=== PATIENT | male | born 1995 | race Caucasian/White ===

== ENCOUNTER 2019-02-21 16:20 | Observation (INO) ==
[2019-02-21] MEDS ORDERED: Naloxone 0.4 MG/ML INJ IVP PRN (20:57)
--- NOTE | 2019-02-21 22:39 | Internal Med History&Physical ---
Date of Encounter: 02/21/19 Time of Encounter: 21:30 Internal Medicine - H&P: HPI Chief complaint: Chest Pain Admitted From: Hospital to Hospital Transfer History of present illness: Mr. Jauregui is a 23 year old male with past medical history significant for hypertension, anxiety, depression, and obesity who presents from [facility] for complaints of chest pain intermittently over past three weeks. Pain is described as "piercing" across chest but does not radiate. Pain is rated at 5/10 at its worst and lasts no longer than 30 minutes and resolves spontaneously. Denies any alleviating or exacerbating factors. Denies any associated symptoms. No known injury or anything he can associate with when he started experiencing the pain. Sought examination today due to length of time pain has persisted though he denies progressive worsening of his symptoms. Sending ER reported EKG as sinus rhythm with Q waves and t wave inversions in leads I, II, and aVL, no previous EKG available for comparison. Due to EKG changes sending ER discussed with extrusion die corrector cardiology Dr Cohen who recommended transfer to [facility] for consult and echocardiogram. Sending ER also obtained chest xray which showed no acute abnormality. Received full dose aspirin at sending ER. Currently denies any headache, numbness, chest pain, shortness of breath, abdominal pain, bowel or bladder changes. Denies any previous echocardiogram or stress testing. Has family history of CAD and atrial fibrillation. Follows regularly with PCP but no other providers. Reports occasional alcohol use but denies any tobacco or drug use. Past Med Surg Social Fam HX - Past Medical History Medical history: hypertension, other Additional medical history: obesity Psychiatric history: anxiety, depression - Past Surgical History Surgical History: no surgical history - Social History Smoking Status: Never smoker Smokeless Tobacco Status: No Alcohol use: none Drug use: none Internal Medicine - H&P: Meds Lisinopril-HCTZ 10-12.5 [Prinzide 10-12.5] 1 each PO DAILY 02/21/19 [History] Sertraline [Zoloft] 50 mg PO DAILY 02/21/19 [History] Allergy/AdvReac Type Severity Reaction Status Date / Time No Known Allergies Allergy Verified 02/21/19 13:49 All Systems PM: A 10-system review of systems was performed and is negative for pertinent findings except as documented above in the HPI. - Constitutional Vitals: Temp Pulse Resp BP Pulse Ox 97.9 F 97 16 135/77 95 02/21/19 20:31 02/21/19 20:31 02/21/19 20:31 02/21/19 20:31 02/21/19 20:31 Exam: General: Alert and oriented. Obese. Skin:Normal color, no rash, no lesions. HEENT:Pupils equal, round and reactive. Cardiovascular:Normal S1 & S2, no rubs, murmurs or gallops. No JVD. Pulse regular. Lungs:Normal breath sounds, no wheezes or crackles. Abdomen:Soft, non-tender, no rigidity. Extremities:No deformity, no edema or tenderness, no joint swelling or clubbing. Neurological:Normal cognition and motor skills. Pulses:Carotid and radial pulses normal +2. Rest of the physical exam is non contributory. Internal Med - H&P Results - Labs Labs: Cardiac Enzymes 02/21/19 Range/Units 21:12 Troponin I < 0.03 (< 0.04) ng/mL - Assessment and Plan (1) Chest pain Current Visit: No Status: Acute Assessment and plan: Currently chest pain free. Initial troponin negative, serial troponins ordered Continuous cardiac monitoring. Echocardiogram ordered. Sending ER consulted cardiology, consult order placed. Qualifiers: Chest pain type: unspecified Qualified Code(s): R07.9 - Chest pain, unspec ified (2) Hypertension Current Visit: Yes Status: Chronic Assessment and plan: Currently controlled. Continue home medications once verified. Qualifiers: Hypertension type: unspecified Qualified Code(s): I10 - Essential (primary) hypertension (3) Anxiety and depression Current Visit: Yes Status: Chronic Assessment and plan: Continue home medications once verified. - Time Spent With Patient Total time spent is greater than 50% in coordination of care (as documented) at patient's floor/unit and/or counseling patient:
[2019-02-22 03:53] LABS: Basophils % 0.2 %; Eosinophils # 0.1 K/mcL (0.0-0.6); Eosinophils % 1.1 %; Hematocrit 42.5 % (37.5-50.1); Hemoglobin 14.7 g/dL (12.9-16.9); Immature Granulocytes % 0.3 % (0-4); Lymphocytes # 3.5 K/mcL (0.6-4.6); Lymphocytes % 37.1 %; Mean Corpuscular HGB Conc 34.6 g/dL (31.6-35.5); Mean Corpuscular Hemoglobin 27.8 pg (28.0-33.3); Mean Corpuscular Volume 80.3 fL (83.0-100.0); Mean Platelet Volume 10.4 fL (9.4-12.4); Monocytes # 0.5 K/mcL (0.0-1.3); Monocytes % 4.8 %; Neutrophils # 5.3 K/mcL (1.6-8.9); Platelet Count 248 K/mcL (140-400); Red Blood Count 5.29 M/mcL (4.19-5.50); Red Cell Distribution Width 12.8 % (11.5-14.5); Segmented Neutrophils % 56.5 %
[2019-02-22 04:11] LABS: BUN/Creatinine Ratio 14 (6-26); Blood Urea Nitrogen 12 mg/dL (6-20); Calcium 9.2 mg/dL (8.6-10.3); Carbon Dioxide 27 mEq/L (23-29); Chloride 104 mEq/L (98-107); Glucose 90 mg/dL (70-105); Osmolality,Calculated 289 (280-300); Potassium 3.9 mEq/L (3.5-5.1); Sodium 140 mEq/L (136-145); eGFR For Non-African Americans > 60 (> 60)
[2019-02-22] MEDS: *HR* Heparin 5,000 UNIT/ML VIAL SQ SCH ×2 (05:18→17:51)
--- NOTE | 2019-02-22 09:17 | Cardiology Consult Note ---
Date of Encounter: 02/22/19 Time of Encounter: 09:16 Assessment and Plan (1) Chest pain Current Visit: No Status: Acute Atypical type chest pain with nonspecific ST changes and negative cardiac markers, aggressive risk stratification with fasting lipid panel, hemoglobin A1c possible sleep apnea evaluation due to obesity. Echo has been ordered by the eleazar dominguez team and is pending, obtained ETT to rule out ischemia Qualifiers: Chest pain type: unspecified Qualified Code(s): R07.9 - Chest pain, un specified Discussion w patient/family: The assessment and plan as outlined above was discussed with the patient and/or family members who expressed understanding and agreement. All questions were answered. Thank you for involving us in the care of your patient. Please call with any questions. History of Present Illness Consult date: 02/22/19 Consult reason: Chest Pain Chief complaint: Chest Pain History of present illness: Mr. Jauregui is a 23 year old male obese with history of hypertension presents to [facility] from an outside Hospital for chest pain. Atypical type chest pain described as retrosternal pressure lasting 30 minutes nonexertional with no associated symptoms and spontaneously resolves. Negative cardiac markers, with nonspecific ST changes on EKG. Past Med Surg Social Fam HX - Past Medical History Medical history: hypertension, other Additional medical history: obesity Psychiatric history: anxiety, depression - Past Surgical History Surgical History: no surgical history - Social History Smoking Status: Never smoker Smokeless Tobacco Status: No Alcohol use: none Drug use: none - Family History Mother Living Status: Still Living Hx Family Cardiac Disorders: Yes (HTN) Hx Family Musculoskeletal Disorders: Yes (mixed connective tissue disease) Father Living Status: Still Living Hx Family Cardiac Disorders: Yes (AFIB) Medications and Allergies Lisinopril-HCTZ 10-12.5 [Prinzide 10-12.5] 1 each PO DAILY 02/21/19 [History] Sertraline [Zoloft] 50 mg PO DAILY 02/21/19 [History] Allergy/AdvReac Type Severity Reaction Status Date / Time No Known Allergies Allergy Verified 02/21/19 13:49 All Systems Review: The remainder of the systems were reviewed and are negative Physical Examination Vital Signs, Last 4 Hours Temp Pulse Resp BP Pulse Ox 02/22/19 07:46 97.3 F L 77 16 104/63 96 General: Conversant, No Apparent Distress HEENT: Atraumatic, Normocephaly, Mucus Membranes Moist Neck: No JVD, Normal carotid pulses Cardiac: Reg Rate and Rhythm, Normal S1 and S2, No Murmur Lungs: Normal Breath Sounds, No Wheeze, Rales, Rhonchi Neuro: Alert and responsive, No focal deficits noted Abdomen: Soft, Non-Tender Skin: No rashes noted on visualized skin Musculoskeletal: No Chest Wall Tenderness Extremities: No Clubbing, No Cyanosis, No Edema, Normal Pulses Results 02/22/19 03:09 02/22/19 03:09 Lab Results 02/21/19 02/22/19 02/22/19 21:12 03:09 03:09 WBC 9.5 Hgb 14.7 Hct 42.5 Plt Count 248 Sodium Potassium Chloride Carbon Dioxide BUN Creatinine Glucose Calcium Troponin I < 0.03 < 0.03 02/22/19 03:09 WBC Hgb Hct Plt Count Sodium 140 Potassium 3.9 Chloride 104 Carbon Dioxide 27 BUN 12 Creatinine 0.84 Glucose 90 Calcium 9.2 Troponin I Consult Discharge Plan - Plan Referrals: Jaleesa Maldonado [Primary Care Provider] -
--- NOTE | 2019-02-22 10:55 | Internal Med Progress Note ---
<Iglesia Fuller - Last Filed: 02/22/19 10:52> Hospitalist Progress Note - Encounter Date of Encounter: 02/22/19 Time of Encounter: 09:15 - Subjective Interval History: 23M PMHx hypertension, anxiety, depression, obesity, presented to [facility] for complaints of chest pain intermittently over the past 3 weeks. Pain is bilateral and piercing in nature, does not radiate to shoulder or jaw, 5/10. Episodes of chest occur almost daily, but denies any associated symptoms. These episodes last less than 30 minutes and resolve spontaneously. Denies any injury of trauma recently. EKG demonstrated sinus rhythm with Q waves and t wave inversions in lead I, II, aVL without previous EKG for comparison. Patient was transferred to [facility] due to abnormal EKG for consult and echocardiogram. CXR has been unremarkable. Today, Patient has not had an episode of chest pain. Denies headache, numbness, SOB, abdominal pain, bowel or bladder changes. Denies f/c/n/v. Patient does not smoke, does admit to occasional alcohol use. - Exam Vitals: Temp Pulse Resp BP Pulse Ox 97.3 F L 77 16 104/63 96 02/22/19 07:46 02/22/19 07:46 02/22/19 07:46 02/22/19 07:46 02/22/19 07:46 Exam: General: Alert and oriented. Obese. Skin:Normal color, no rash, no lesions. HEENT:Pupils equal, round and reactive. Cardiovascular:Normal S1 & S2, no rubs, murmurs or gallops. No JVD. Pulse regular. Lungs:Normal breath sounds, no wheezes or crackles. Abdomen:Soft, non-tender, no rigidity. Extremities:No deformity, no edema or tenderness, no joint swelling or clubbing. Neurological:Normal cognition and motor skills. Pulses:Carotid and radial pulses normal +2. Rest of the physical exam is non contributory. - Assessment and Plan (1) Chest pain Current Visit: No Status: Acute Assessment and Plan: Stable. 23M presents with atypical chest pain x 3 weeks. Will risk stratify. Patient has a high BMI, does not smoke. No previous history of diabetes or dyslipidemia. Troponin neg x 2. CXR unremarkable. EKG with Q waves and t wave inversions in leads I, II, aVL without previous comparison. 2 day exercise nuclear stress test starting today. Continue with continuous pulse ox and cardiac monitoring Cardiac diet after stress test today Likely discharge tomorrow (2) Anxiety and depression Current Visit: No Status: Chronic Assessment and Plan: Stable. Continue home meds. (3) Hypertension Current Visit: No Status: Chronic Assessment and Plan: Stable. Continue with home meds. DVT Prophylaxis: SQ heparin - Time Spent with Patient Total time spent is greater than 50% in coordination of care (as documented) at patient's floor/unit and/or counseling patient: Greater than 35 minutes Plan of Care Discussed with: patient Internal Medicine: Result - Labs CBC & Chem 7: 02/22/19 03:09 02/22/19 03:09 Labs: Short CBC 02/22/19 Range/Units 03:09 WBC 9.5 (4.3-11.1) K/mcL Hgb 14.7 (12.9-16.9) g/dL Hct 42.5 (37.5-50.1) % Plt Count 248 (140-400) K/mcL Neutrophils # 5.3 (1.6-8.9) K/mcL BMP 02/22/19 03:09 Sodium 140 Potassium 3.9 Chloride 104 Carbon Dioxide 27 BUN 12 Creatinine 0.84 Glucose 90 Calcium 9.2 Cardiac Enzymes 02/21/19 02/22/19 Range/Units 21:12 03:09 Troponin I < 0.03 < 0.03 (< 0.04) ng/mL Consult Discharge Plan - Plan Referrals: Jaleesa Maldonado [Primary Care Provider] - 02/25/19 1:45 pm <Zaheer Wasserman - Last Filed: 02/22/19 15:39> Hospitalist Progress Note - Encounter Date of Encounter: 02/22/19 - Exam Vitals: Temp Pulse Resp BP Pulse Ox 98.3 F 88 14 127/69 97 02/22/19 11:19 02/22/19 11:19 02/22/19 11:19 02/22/19 11:19 02/22/19 11:19 - Assessment and Plan (1) Chest pain Current Visit: No Status: Acute (2) Hypertension Current Visit: No Status: Chronic (3) Anxiety and depression Current Visit: No Status: Chronic - Time Spent with Patient Total time spent is greater than 50% in coordination of care (as documented) at patient's floor/unit and/or counseling patient: Internal Medicine: Result - Labs CBC & Chem 7: 02/22/19 03:09 02/22/19 03:09 Labs: Short CBC 02/22/19 Range/Units 03:09 WBC 9.5 (4.3-11.1) K/mcL Hgb 14.7 (12.9-16.9) g/dL Hct 42.5 (37.5-50.1) % Plt Count 248 (140-400) K/mcL Neutrophils # 5.3 (1.6-8.9) K/mcL BMP 02/22/19 03:09 Sodium 140 Potassium 3.9 Chloride 104 Carbon Dioxide 27 BUN 12 Creatinine 0.84 Glucose 90 Calcium 9.2 Cardiac Enzymes 02/21/19 02/22/19 Range/Units 21:12 03:09 Troponin I < 0.03 < 0.03 (< 0.04) ng/mL - Attending Attestation I examined this patient and my medical decision-making was reviewed with the Resident Physician Dr. Fuller. I agree with the documented findings, disposition and treatment plan as described except to the extent set forth below. Mr. Jauregui is 23 y/o M with known PMH of HTN, anxiety and depression pt admitted here for chest pain. He denied any more CP now. 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 His serial troponin came back is negative. He scheduled for nuclear stress test today. Since his BMI @ 45, needed 2 days stress test. Will follow-up on his stress test results. Gen: A, A, O x3 Chest: Diminished BS, No wheezing no crackles Heart: S1S2+ RRR <Iglesia Fuller - Last Filed: 02/22/19 10:52> (1) Chest pain Qualifiers: Chest pain type: unspecified Qualified Code(s): R07.9 - Chest pain, unspecif ied (3) Hypertension Qualifiers: Hypertension type: unspecified Qualified Code(s): I10 - Essential (primary) hypertension <Zaheer Wasserman - Last Filed: 02/22/19 15:39> (1) Chest pain Qualifiers: Chest pain type: unspecified Qualified Code(s): R07.9 - Chest pain, uns pecified (2) Hypertension Qualifiers: Hypertension type: unspecified Qualified Code(s): I10 - Essential (primary) hypertension
--- NOTE | 2019-02-22 15:22 | Event Note ---
Date of Encounter: 02/22/19 Time of Encounter: 15:20 - Cardiology Event Note Per discussion with Dr. Cohen, cardiology will sign-off, re-consult if any abnormal findings on echo or standard stress test tomorrow.
[2019-02-23] MEDS: *HR* Heparin 5,000 UNIT/ML VIAL SQ SCH (06:11)
[2019-02-23] MEDS ORDERED: Regadenoson 0.4 MG/5 ML SYRINGE IVP ONE (06:47)
[2019-02-23 07:09] LABS: Chol/HDL Ratio 5.1 (0-4.9)
[2019-02-23 09:13] LABS: Estimated Average Glucose 128 mg/dl; Hemoglobin A1C 6.1 %
--- NOTE | 2019-02-23 10:46 | Discharge Summary ---
<Iglesia Fuller - Last Filed: 02/23/19 14:41> - NOTES TO OUTPATIENT PROVIDER Notes to Outpatient Provider: Please follow up with PCP in regards to intermittent chest pain and pre-diabetes. Orders not resulted at time of discharge: Pending orders 02/22/19 13:02 NM abdelrahman perf SPECT multi [NM] Routine 02/23/19 07:05 SP pharm nuclear stress Routine Date of Encounter: 02/23/19 Time of Encounter: 08:45 - Discharge Diagnosis (1) Intermittent chest pain Priority: Primary Status: Acute (2) Anxiety and depression Priority: Secondary Status: Chronic (3) Hypertension Priority: Secondary Status: Chronic Qualifiers: Hypertension type: essential hypertension Qualified Code(s): I10 - Essential (primary) hypertension (4) Hypertriglyceridemia Priority: Secondary Status: Acute Hospital course: Mr. Jauregui is a 23M PMHx hypertension, anxiety, depression, obesity, presented to [place] [facility] for complaints of chest pain intermittently over the past 3 weeks. Pain is bilateral and piercing in nature, does not radiate to shoulder or jaw, 5/10. Episodes of chest pain occur almost daily, but denies any associated symptoms. These episodes last less than 30 minutes and resolve spontaneously. Denies any injury of trauma recently. EKG demonstrated sinus rhythm with Q waves and t wave inversions in lead I, II, aVL without previous EKG for comparison. Patient was transferred to [facility] due to abnormal EKG for consult. CXR has been unremarkable. Troponin negative x 2. Risk stratification significant for A1c 6.1, dyslipidemia TG 216, VLDL 43, HDL 28. Patient is started on baby aspirin. Nuclear stress test also unremarkable. Patient has not had an episode of chest pain throughout admission. Denies headache, blurry vision, numbness, SOB, cough, abdominal pain, bowel or bladder changes. Denies f/c/n/v. Patient does not smoke, does admit to occasional alcohol use. He is back to baseline. Follow up with PCP in regards to intermittent chest pain and pre-diabetes. Continue home medications for depression and hypertension. Discharge discussed with: patient - Time Spent with Patient Total time spent providing and/or coordinating discharge services: Time spent: D/C greater than 8 hours after Admission - Discharge Medications Prescriptions: New RX: Aspirin [Adult Aspirin] 81 mg PO DAILY #30 tablet.dr Ambrocio RX: Sertraline [Zoloft] 50 mg PO DAILY RX: Lisinopril-HCTZ 10-12.5 [Prinzide 10-12.5] 1 each PO DAILY Home Medications: RX: Lisinopril-HCTZ 10-12.5 [Prinzide 10-12.5] 1 each PO DAILY 02/21/19 [History] RX: Sertraline [Zoloft] 50 mg PO DAILY 02/21/19 [History] RX: Aspirin [Adult Aspirin] 81 mg PO DAILY #30 tablet. 02/23/19 [Rx] Allergies/Adverse Reactions: Allergy/AdvReac Type Severity Reaction Status Date / Time No Known Allergies Allergy Verified 02/22/19 09:24 Date of admission: 02/21/19 20:24 Primary care physician: Jaleesa Maldonado Consults: 02/21/19 22:50 Consult to Cardiology [CONS] Routine Comment: Consulting Provider: Cardiology Cherrie Reason for Consult: Sending ER called quality control tech cardiology Dr Cohen to discuss EKG changes, recommended transfer for consult and echocardiogram. Call Completed: Yes Discharging clinician: Iglesia Fuller Anticipated date of discharge: 02/23/19 - Constitutional Vitals: Temp Pulse Resp BP Pulse Ox 97.4 F L 80 16 115/74 95 02/23/19 07:55 02/23/19 07:55 02/23/19 07:55 02/23/19 07:55 02/23/19 07:55 General appearance: Present: A&O X 3 Exam: As below - Head Head exam: Present: atraumatic, normocephalic - Eye Eye exam: Present: PERRL, conjuntiva pink, sclera anicteric Pupils: Present: PERRL - Neck Neck exam general surgery: Present: supple, trachea midline. Absent: lymphadenopathy - Respiratory Respiratory exam: Present: CTAB. Absent: accessory muscle use, rales, rhonchi, wheezes - Cardiovascular Cardiovascular exam: Present: RRR, +S1, +S2. Absent: diastolic murmur, gallop, rubs, systolic murmur - GI/Abdominal GI/Abdominal exam: Present: normal bowel sounds, soft, no peritoneal signs. Absent: distended, tenderness - Extremities Exam Extremities exam: Present: warm, radial pulses palpable and symmetrical. Absent: calf tenderness, cyanotic, pedal edema - Neurological Exam Neurological exam: Present: CN II-XII intact, oriented X3, no focal deficits. Absent: pronater drift, facial droop, speech deficit - Skin Skin exam: Present: dry, intact - Patient Status Disposition: Home, Self-Care Condition: Good Functional capacity at discharge: independent ambulation Overall status at discharge: patient is back to baseline - Discharge Instructions Instructions: Aspirin (By mouth), Chest Pain (DC) Follow Up With: Jaleesa Maldonado [Primary Care Provider] - 02/25/19 1:45 pm - Diet and Activity Activity: resume usual activities as tolerated Diet: advance to your usual diet <Zaheer Wasserman - Last Filed: 02/23/19 15:42> Orders not resulted at time of discharge: Pending orders 02/22/19 13:02 NM abdelrahman perf SPECT multi [NM] Routine Date of Encounter: 02/23/19 - Discharge Diagnosis (1) Chest pain Status: Acute Qualifiers: Chest pain type: unspecified Qualified Code(s): R07.9 - Chest pain, unspecified (2) Hypertension Status: Chronic Qualifiers: Hypertension type: essential hypertension Qualified Code(s): I10 - Essential (primary) hypertension (3) Anxiety and depression Status: Chronic Hospital course: Mr. Jauregui is a 23 year old male - Time Spent with Patient Total time spent providing and/or coordinating discharge services: Date of admission: 02/21/19 20:24 Primary care physician: Jaleesa Maldonado Consults: 02/21/19 22:50 Consult to Cardiology [CONS] Routine Comment: Consulting Provider: London Grier Reason for Consult: Sending ER called quality control tech cardiology Dr Cohen to discuss EKG changes, recommended transfer for consult and echocardiogram. Call Completed: Yes - Constitutional Vitals: Temp Pulse Resp BP Pulse Ox 98.9 F 86 16 124/77 96 02/23/19 14:42 02/23/19 14:42 02/23/19 14:42 02/23/19 14:42 02/23/19 14:42 - Attending Attestation I examined this patient and my medical decision-making was reviewed with the Resident Physician Dr. Fuller. I agree with the documented findings, disposition and treatment plan as described except to the extent set forth below. Mr. Jauregui is 23 y/o M with known PMH of HTN, anxiety and depression pt admitted here for chest pain. He denied any more CP now. 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 His serial troponin came back is negative. He scheduled for nuclear stress test today. Since his BMI @ 45, needed 2 days stress test. His nuclear stress test came back is negative. He does have metabolic syndrome with hemoglobin A1C @ 6.1. Ink Technician the patient about diet modifications and lifestyle changes Gen: A, A, O x3 Chest: Diminished BS, No wheezing no crackles Heart: S1S2+ RRR
[2019-02-23 14:43] VITALS: BP 124/77
== END 2019-02-23 16:08 | disposition home or self-care (01) ==
LOC: 3BNU → SUATTDRO 20:24
PROVIDERS: ADMIT Internal Medicine Nephrology; ATTEND Family Medicine